=== PATIENT | male | born 1990 | race Caucasian/White ===

== ENCOUNTER 2023-07-25 23:33 | Emergency (ER) | payer SELFPAY ==
[2023-07-25 23:36] VITALS: BP 133/81; PULSE 77; RESP 20; TEMP 36.8; O2SAT 97; BMI 33.4
--- NOTE | 2023-07-25 23:36 | XRR_ITS ---
PROCEDURE INFORMATION: Exam: XR Right Hand Exam date and time: 07/26/2023 12:07 AM Age: 32 years old Clinical indication: Injury or trauma; Other: Slammed in care home cell door; Other: Pain; Additional info: Right hand swelling TECHNIQUE: Imaging protocol: Radiologic exam of the right hand. Views: 3 or more views. COMPARISON: No relevant prior studies available. 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 No acute fracture identified. Soft tissues: Normal. XR/XR hand RT min 3V* [id number] IMPRESSION: 1. No acute fracture identified. 2. 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
--- NOTE | 2023-07-25 23:43 | ED_ITS ---
HPI - Extremity Problem General: Chief complaint: Extremity Injury, Upper Stated complaint: broken hand Time Seen by Provider: 07/25/23 23:36 History of Present Illness: 32-year-old male presents emergency depa rtment with complaints of right hand pain and swelling. 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 Patient states that one of the heavy cell doors accidentally hit his hand several hours before coming here [facility]. He states he is continued to have aching throbbing type pain and is concerned that his hand might be broke. He states the pain is a 5 out of 10 and worse if he moves his hand. There is a superficial abrasion to the dorsal aspect of the right hand. Capillary refills less than 3 seconds he is able to move his fingers without much difficulty. He has no other injuries to the hand or forearm. Review of Systems General: Reports: 10 or more systems reviewed and unremarkable except in HPI and below Musc: Reports: extremity pain and extremity swelling Physical Exam Narrative: EXAM NARRATIVE: General: Alert, no acute distress. Skin: Warm, dry, Intact. Head: Normocephalic, atraumatic. Neck: Supple, trachea midline. Eye: Extraocular movements are intact. PERRLA Ears, nose, mouth and throat: mucosa moist. Cardiovascular: Regular, Normal peripheral perfusion. Respiratory: Lungs are clear to auscultation, respirations are non-labored, breath sounds are equal, Symmetrical chest wall expansion. Gastrointestinal: Soft, Nontender, Non distended, Normal bowel sounds. Musculoskeletal: Normal ROM, right hand edema, superficial abrasion dorsal aspect of the right hand. Neurological: Alert and oriented, No focal neurological deficit observed. Psychiatric: Cooperative, appropriate mood & affect. Course Vital Signs: Vital signs: Vital Signs Temperature 98.2 F 07/25/23 23:36 Pulse Rate 77 07/25/23 23:36 Respiratory Rate 20 H 07/25/23 23:36 Blood Pressure 133/81 07/25/23 23:36 Pulse Oximetry 97 07/25/23 23:36 MDM - Extremity (Nontraumatic) Medical Decision Making Physical exam completed document I did provide the patient p.o. Tylenol for his pain control and ordered an ice pack. I reviewed the x-ray of his right hand and it does appear to only have soft tissue injury. I will discharge the patient in the custody of the military source operations officer. Medical Records I reviewed the patient's medical records. Lab Data Radiology Impressions Hand X-Ray 07/25/23 23:36 IMPRESSION: 1. No acute fracture identified. 2. 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 All radiology interpretation(s) finalized by discharge Discharge Plan Discharge Patient Disposition: Home Clinical Impression: Contusion of hand, right Qualifiers: Encounter type: initial encounter Qualified Code(s): S60.221A - Contusion of right hand, initial encounter Discharge Orders: Discharge ED (Routine); Ordered 07/26/23 Ordered By: Zachary Willingham Discharge Diet: Usual diet Discharge Activity: Resume usual activity Patient Instructions: Opioid Safety, Pain Management Coding Level of Care Code ED Pyrometallurgical Engineer for Blas Arreola
[2023-07-25] MEDS: acetaminophen 325 mg Tablet 650 MG PO (23:46)
== END 2023-07-26 00:48 | disposition home or self-care (01) ==
PROVIDERS: Emergency Provider Internal Medicine
DX: S60.221A Contusion of right hand, initial encounter (principal); W22.8XXA Striking against or struck by other objects, initial encounter; Y92.143 Cell of prison as the place of occurrence of the external cause
CPT/HCPCS: 73130; 99283

== ENCOUNTER 2023-08-14 23:28 | Emergency (ER) | payer MEDICAID, SELFPAY ==
[2023-08-14 23:29] VITALS: BP 127/90; PULSE 83; RESP 15; TEMP 37.1; O2SAT 95; BMI 34.2
--- NOTE | 2023-08-14 23:31 | XRR_ITS ---
PROCEDURE INFORMATION: Exam: XR Abdomen Exam date and time: 08/14/2023 11:42 PM Age: 32 years old Clinical indication: Constipation; Additional info: Constipation, abd pain TECHNIQUE: Imaging protocol: Radiologic exam of the abdomen. Views: Frontal supine view of the abdomen. 1 View. COMPARISON: CT kidney stone [id number] 08/06/2018 1:06 PM FINDINGS: Gastrointestinal tract: Nonobstructive bowel-gas pattern. There is [id number] amount of stool throughout the colon and rectum, suggestive of constipation. Bones/joints: Unremarkable. XR/XR abdomen 1V* [id number] IMPRESSION: Imaging findings suggestive of constipation.
--- NOTE | 2023-08-14 23:34 | W.ED.ABDPA2 ---
HPI - Abdominal Pain General: Chief Complaint: Abdominal Pain Stated Complaint: constipation Time Seen by Provider: 08/14/23 23:29 History of Present Illness: Patient presents to the ER with in custody by police patient has complaints of no bowel movement in the last 4 to 5 days. Patient says bowels are still making noises but she does not have the urge to go. Patient said he normally goes every day. Patient denies any nausea vomiting. Review of Systems General: Reports: 10 or more systems reviewed and unremarkable except in HPI and below Physical Exam Const: COMMON NORMALS: no acute distress, average body habitus, patient oriented x3, no limitations, healthy appearing, alert and well nourished Neck/C-Spine: COMMON NORMALS: no JVD Chest: COMMONS NORMALS: normal inspection of the chest and normal palpation of entire chest wall Resp: COMMON NORMALS: normal respiratory effort, No retractions, No use of accessory muscles and clear to auscultation bilaterally AUSCULTATION: clear to auscultation bilaterally Cardio: COMMON NORMALS: no JVD, regular rate, regular rhythm, S1 normal heart sound present, S2 normal heart sound present, No gallops present (Cardio), No clicks present (Cardio), No murmurs present (Cardio) and No rub (Cardio) RATE: regular rate RHYTHM: regular rhythm HEART SOUNDS: S1 normal heart sound present and S2 normal heart sound present GI: COMMON NORMALS: Normal to inspection, nondistended, normoactive bowel sounds present, Soft to palpation, non-tender, No hepatosplenomegaly present and no masses PALPATION: Yes Soft to palpation and Yes No hepatosplenomegaly present Neuro: COMMON NORMALS: patient oriented x3 SENSORIUM/ORIENTATION: Yes alert Course Vital Signs: Vital signs: Vital Signs Temperature 98.7 F 08/14/23 23:29 Pulse Rate 83 08/14/23 23:29 Respiratory Rate 15 08/14/23 23:29 Blood Pressure 127/90 08/14/23 23:29 Pulse Oximetry 95 08/14/23 23:29 Oxygen Delivery Me thod Room Air 08/14/23 23:29 MDM - Abdominal Pain Medical Decision Making Final x-rays obtained which showed prominent stool but no obvious obstruction preliminary read by myself. Patient was given 10 mg Duca locks in 1 bottle of mag citrate and discharged back to the care home. Differential Diagnosis Likely constipation; Unlikely abdominal pain, acute appendicitis, calculus of kidney, diverticulitis, endometriosis, gastroenteritis, pancreatitis or small bowel obstruction Medical Records I reviewed the patient's medical records. Lab Data I reviewed the patient's lab results. All radiology interpretation(s) finalized by discharge Discharge Plan Discharge Patient Disposition: Home Clinical Impression: Constipation Qualifiers: Constipation type: unspecified constipation type Qualified Code(s): K59.00 - Constipation, unspecified Condition: Stable Discharge Orders: Discharge ED (Routine); Ordered 08/15/23 Ordered By: Ilya Cooper Patient Instructions: Constipation - Adult Activity Restrictions/Additional Instructions: The preliminary report of your x-ray did not show any obstruction and just constipation. You are given magnesium citrate and Dulcolax in the ER. This should produce results within next 6 to 8 hours. Please increase your fiber intake and drink plenty of fluids as these both will help with constipation. Otherwise follow-up with your family doctor within next 7 days for further evaluation and treatment. Coding Level of Care Code ED Food And Beverage Coordinator for Blas Arreola
[2023-08-15] MEDS: bisacodyl 5 mg Tablet 10 MG PO (00:41)
[2023-08-15] MEDS: magnesium citrate Btl 296 mL PO (00:43)
[2023-08-15 00:46] VITALS: BP 141/82; PULSE 79; RESP 14; O2SAT 100
== END 2023-08-15 00:48 | disposition home or self-care (01) ==
PROVIDERS: Emergency Provider Emergency Medicine
DX: K59.00 Constipation, unspecified (principal)
CPT/HCPCS: 74018; 99283